=== PATIENT | male | born 1980 | race Caucasian/White ===

== ENCOUNTER 2020-03-28 06:15 | Emergency (ER) | payer OTHER ==
[~2020-03-28] VITALS: Ht 170.2 cm; Wt 89.5 kg
[2020-03-28 06:26] VITALS: BP 159/98; Ht 170.2 cm; Wt 89.5 kg
== END 2020-03-28 09:15 | disposition home or self-care (01) ==
LOC: ED 06:15
DX: J02.9 Acute pharyngitis, unspecified (principal)